=== PATIENT | female | born 1950 | race Caucasian/White ===

== ENCOUNTER 2024-12-23 10:23 | Emergency (ER) | payer OTHER ==
[2024-12-23 10:30] LABS: Glucose,Whole Blood 98 mg/dL (70-110)
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
[2024-12-23 11:39] VITALS: RESP 18
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
[2024-12-23] MEDS: ACET/COD 300 MG/30 MG STARTER PACK 6 TAB BTL PO STA (13:32)
[2024-12-23 13:37] VITALS: BP 177/89; PULSE 80; TEMP 97.9
== END 2024-12-23 14:21 | disposition home or self-care (01) ==
LOC: EC 10:23
DX: S06.0X0A Concussion without loss of consciousness, initial encounter (principal); S30.0XXA Contusion of lower back and pelvis, initial encounter; R40.2410 Glasgow coma scale score 13-15, unspecified time; I10 Essential (primary) hypertension; F17.200 Nicotine dependence, unspecified, uncomplicated; V49.40XA Driver injured in collision with unspecified motor vehicles in traffic accident, initial encounter
CPT/HCPCS: 36415; 70450; 71046; 72125; 72131; 99285